=== PATIENT | male | born 1950 | race Caucasian/White ===

== ENCOUNTER 2018-08-16 10:56 | Emergency (ER) | payer MEDICARE ==
[~2018-08-16] VITALS: Ht 175.3 cm; Wt 87.3 kg
[2018-08-16 10:58] VITALS: BP 171/88; PULSE 90; RESP 19; Ht 175.3 cm; Wt 87.3 kg
[2018-08-16] MEDS ORDERED: GLIP5TAB13 PO (11:34)
[2018-08-16] MEDS ORDERED: IBUP-1561 PO (11:35)
[2018-08-16] MEDS ORDERED: ASPI-817 PO (11:35)
[2018-08-16] MEDS ORDERED: CETI10CA PO (11:36)
[2018-08-16] MEDS ORDERED: ALBU18HF INHALATION (11:36)
[2018-08-16] MEDS ORDERED: MED4DP PO (11:36)
[2018-08-16] MEDS ORDERED: SYMB80120 INHALATION (11:37)
--- NOTE | 2018-08-16 11:40 | ERD ---
ER Documentation Chief Complaint Chief Complaint sob, throat and head pain x 3 days HPI 68-year-old male presents to the ED visiting from [place]. Reports sore throat, coughing, rhinorrhea, and congestion for the past 3 to 4 days. He denies any fevers recorded at home. He reports that his cough is mostly dry. He reports feeling congested in his sinuses and in the back of his throat. He is visiting from [place] and he is not seen the provider in [place]. He does not have a medical provider at this time in [place]. He has not tried anything to help with the symptoms. ROS All systems reviewed and are negative except as per history of present illness. Medications Home Meds Active Scripts Budesonide-Formoterol Fumarate* (Symbicort*) 80-4.5 Inha, 2 PUFFS INHALATION BID, #1 EACH Prov:HALINA MANRIQUE PA-C 08/16/18 Methylprednisolone* (Medrol* DOSE PACK) 4 Mg/Dose-Pack Tab.ds.pk, 4 MG PO . DIRECTED, #5 PACKET Prov:HALINA MANRIQUE PA-C 08/16/18 Cetirizine Hcl* (Zyrtec*) 10 Mg Capsule, 10 MG PO DAILY, #10 TAB.CHEW Prov:HALINA MANRIQUE PA-C 08/16/18 Albuterol Sulfate* (Ventolin HFA*) 18 Gm Hfa.aer.ad, 2 PUFF INHALATION Q6H, #1 INHALER Prov:HALINA MANRIQUE PA-C 08/16/18 Ibuprofen* (Motrin*) 400 Mg Tab, 400 MG PO Q6H PRN for PAIN AND OR ELEVATED TEMP, #30 TAB Prov:HALINA MANRIQUE PA-C 08/16/18 Aspirin* (Aspirin* EC) 81 Mg Tablet.dr, 81 MG PO DAILY, #7 TAB Prov:HALINA MANRIQUE PA-C 08/16/18 Glipizide* (Glipizide*) 5 Mg Tablet, 5 MG PO AC BREAKFAST, #7 TAB Prov:HALINA MANRIQUEC 08/16/18 PMhx/Soc Medical and Surgical Hx: pt denies Medical Hx FmHx Family History: No diabetes Physical Exam Vitals Vital Signs Date Temp Pulse Resp B/P (MAP) Pulse Ox O2 O2 Flow FiO2 Time Delivery Rate 08/16/18 99.0 90 19 171/88 95 10:58 (115) Physical Exam Const: No acute distress, coughing during exam Head: Atraumatic Eyes: Normal Conjunctiva, PERRLA ENT: Normal External Ears, Nose: Clear discharge present with boggy appearance. Mouth: Mucosa pink and moist. Throat non-erythematous, non-exudate, uninflamed. Neck: Full range of motion. Resp: Moderate wheezing throughout the lung mendoza Cardio: Regular rate and rhythm, no murmurs Abd: Soft, non tender, non distended. Normal bowel sounds Skin: No petechiae or rashes Back: Tenderness to lumbar spine Ext: No cyanosis, or edema Neur: Awake and alert Psych: Normal Mood and Affect Procedures/MDM ED COURSE: The patient was stable throughout ED course. I kept the patient informed of laboratory and diagnostic imaging results throughout the ED course. MEDICATIONS GIVEN: [None.] MEDICAL DECISION MAKING: Patient is a 68-year-old male presenting to the ED after visiting from [place]. He reports a cough, congestion, rhinorrhea, sore throat for the past 3 to 4 days. During history and physical this appears to be acute sinusitis. Patient did have wheezing during exam. He reports that he had a inhaler from [place] th at is run out. He also brings a list of medications that he is asking for refills for at this time. However he was explained that in the emergency department we did do not manage chronic disease and he was instructed to call 1 of the numbers listed in the packet for community health or community clinic for further management of his conditions including diabetes. He was prescribed a week's worth of medication to help him until he has time to go to the community clinic. There is a low suspicion for pneumonia, pneumothorax, mononucleosis, pulmonary embolism, epiglottitis, otitis media, otitis externa, viral/strep pharyngitis, sinusitis, myocarditis, pericarditis, endocarditis, peritonsillar abscess, mastoiditis, retropharyngeal abscess, meningitis, sepsis, acute abdomen or other emergent conditions. Fluids, rest, and symptomatic treatment are recommended for the management of patient's symptoms. Vital signs were reviewed. Patient is afebrile. Patient was not hypoxic. Patient was hemodynamically stable. PRESCRIPTION: Profen, albuterol, Symbicort, aspirin, glipizide, Medrol Dosepak, Zyrtec DISCHARGE: At this time, patient is stable for discharge and outpatient management. I have instructed the patient to follow-up with his/her primary care physician in 1-2 days. I have discussed with the patient the possibility of needing to see a specialist for further workup and imaging studies if symptoms persist. I have instructed the patient to promptly return to the ER for any new or worsening symptoms including increased pain, fever, nausea, vomiting, weakness or LOC. The patient and/or family expressed understanding of and agreement with this plan. All questions were answered. Home care instructions were provided. Disclaimer: Inadvertent spelling and grammatical errors are likely due to EHR/dictation software use and do not reflect on the overall quality of patient care. Also, please note that the electronic time recorded on this note does not necessarily reflect the actual time of the patient encounter. Departure Diagnosis: Primary Impression: Sinusitis, acute Sinusitis location: unspecified location Recurrence: not specified as recurrent Qualified Codes: J01.90 - Acute sinusitis, unspecified Condition: Fair Patient Instructions: Sinusitis, No Abx Referrals: [facility] YOU HAVE RECEIVED A MEDICAL SCREENING EXAM AND THE RESULTS INDICATE THAT YOU DO NOT HAVE A CONDITION THAT REQUIRES URGENT TREATMENT IN THE EMERGENCY DEPARTMENT. FURTHER EVALUATION AND TREATMENT OF YOUR CONDITION CAN WAIT UNTIL YOU ARE SEEN IN YOUR DOCTORS OFFICE WITHIN THE NEXT 1-2 DAYS. IT IS YOUR RESPONSIBILITY TO MAKE AN APPOINTMENT FOR FOLOW-UP CARE. IF YOU HAVE A PRIMARY DOCTOR --you should call your primary doctor and schedule an appointment IF YOU DO NOT HAVE A PRIMARY DOCTOR YOU CAN CALL OUR PHYSICIAN REFERRAL HOTLINE AT IF YOU CAN NOT AFFORD TO SEE A PHYSICIAN YOU CAN CHOSE FROM THE FOLLOWING [facility] CLINICS [facility] [address] [facility] [address] [email or web address] [address] [facility] [address] [facility] [address] [facility]. [facility]. [address] [facility] YOU HAVE RECEIVED A MEDICAL SCREENING EXAM AND THE RESULTS INDICATE THAT YOU DO NOT HAVE A CONDITION THAT REQUIRES URGENT TREATMENT IN THE EMERGENCY DEPARTMENT. FURTHER EVALUATION AND TREATMENT OF YOUR CONDITION CAN WAIT UNTIL YOU ARE SEEN IN YOUR DOCTORS OFFICE WITHIN THE NEXT 1-2 DAYS. IT IS YOUR RESPONSIBILITY TO MAKE AN APPOINTMENT FOR FOLOW-UP CARE. IF YOU HAVE A PRIMARY DOCTOR --you should call your primary doctor and schedule and appointment IF YOU DO NOT HAVE A PRIMARY DOCTOR YOU CAN CALL OUR PHYSICIAN REFERRAL HOTLINE AT . IF YOU CAN NOT AFFORD TO SEE A PHYSICIAN YOU CAN CHOSE FROM THE FOLLOWING [facility] INSTITUTIONS: [facility] [address] [place] [address] [facility] [address] [place] [address] [facility] [address] [place] [address] Additional Instructions: call one of the numbers in the packet for a community clinic to follow up for care and prison medication refill Llame al doctor AURELIA y randee kalen KODAK PARA DENTRO DE 1-2 TAMAYO.Dgale a la secretaria que nosotros le instruimos hacer esta kodak.Avise o llame si rosario condicin se empeora antes de la kodak. Regresa aqui si peor o no mejor. HALINA MANRIQUE PA-C Aug 16, 2018 11:40
== END 2018-08-16 12:21 | disposition home or self-care (01) ==
LOC: FTE 10:56
DX: J01.90 Acute sinusitis, unspecified (principal)
CPT/HCPCS: 99283